=== PATIENT | male | born 1975 | race Caucasian/White ===

== ENCOUNTER 2019-08-12 14:14 | Emergency (ER) | payer SELFPAY ==
[~2019-08-12] VITALS: Ht 170.2 cm; Wt 77.1 kg
[2019-08-12 14:30] VITALS: BP 144/83
--- NOTE | 2019-08-12 14:30 | NUR ---
ED Nurse Note: Pt ambulated to ED d/t LT hand 2nd digit laceration noted with controlled bleeding x 1 hr ago. Pt is AOx4, french in speaking, VSS, on RA, afebrile. Placed on RME.
[2019-08-12] MEDS ORDERED: Tetanus/Diptheria/Pertussis IM ONE (14:45)
[2019-08-12] MEDS ORDERED: Morphine Sulfate 2mg/ml Inj(IV/IM USE ONLY) IVP ONE (15:00)
[2019-08-12] MEDS ORDERED: Bupivacaine 0.5% Inj 30 ml vial INJ ONE (15:00)
[2019-08-12] MEDS ORDERED: ceFAZolin sod 1 GM in NS 55 ML IVPB ONE (15:00)
--- NOTE | 2019-08-12 15:26 | Emergency Room Report ---
History of Present Illness General Chief Complaint: Laceration Source: Patient Present Illness HPI Patient is a 44-year-old male brought in by self after increased pain to the left index finger. Patient had recent crush injury to the finger. Had a heavy object landed on the tip of his finger. Denies any other locations of pain or injury.Patient was noted to be [id number]. Denies recent tetanus vaccine. Reports having pain to the tip of the finger. Denies any other prior medical history. Allergies: Coded Allergies: No Known Allergies (Unverified , 08/12/19) COVID-19 Screening Contact w/high risk pt: No Recent Travel to affected area: No Experienced COVID-19 symptoms?: No Patient History Past Medical History: see triage record Reviewed Nursing Documentation: PMH: Agreed; PSxH: Agreed Nursing Documentation-PMH Past Medical History: No Stated History Review of Systems All Other Systems: negative except mentioned in HPI Physical Exam Vital Signs Date Time Temp Pulse Resp B/P (MAP) Pulse Ox O2 Delivery O2 Flow Rate FiO2 08/12/19 14:27 98.2 105 18 144/83 (103) 95 Room Air Sp02 EP Interpretation: reviewed, normal General Appearance: normal inspection, well appearing, no apparent distress, alert, GCS 15 Head: atraumatic ENT: normal ENT inspection, hearing grossly normal, normal voice Neck: normal inspection, full range of motion, supple, no bony tend Respiratory: normal inspection, lungs clear, normal breath sounds, no respiratory distress, no retraction, no wheezing Cardiovascular #1: regular rate, rhythm, no edema Gastrointestinal: normal inspection, normal bowel sounds, non tender, soft, no guarding, no hernia Genitourinary: no CVA tenderness Musculoskeletal: normal inspection, back normal, other - deformity to left index finger distal phalanx with laceration and base of nail injury Neurologic: alert, motor strength/tone normal, business intelligence developer III-XII nml as tested, oriented x3, responsive, speech normal, normal inspection Psychiatric: normal inspection, judgement/insight normal, mood/affect normal Skin: laceration - complex laceration as above Medical Decision Making Diagnostic Impression: Primary Impression: Laceration Additional Impression: Open finger fracture ER Course Patient presented for hand injury. Differential diagnosis include was not limited to fracture, contusion, foreign body, vascular compromise, tendon injury among others. Because of complexity of patient's case laboratory tests and imaging studies were ordered. Patient was given IV ancef and tetanus was updated. Patient was given a local injection of 1 cc of 25% Marcaine for anesthesia and pain medications. Dr. Lux Anand was contacted for hand surgery evaluation due to open fracture and complex laceration Patient was seen by Dr. Anand. Patient's open fracture was managed by him. Patient was discharged home. Patient is to follow-up with Dr. Anand. He is to return if worse. Labs Test 08/12/19 15:13 White Blood Count 7.4 K/UL (4.8-10.8) Red Blood Count 4.94 M/UL (4.70-6.10) Hemoglobin 15.7 G/DL (14.2-18.0) Hematocrit 48.6 % (42.0-52.0) Mean Corpuscular Volume 99 FL (80-99) Mean Corpuscular Hemoglobin 31.9 PG (27.0-31.0) Mean Corpuscular Hemoglobin Concent 32.4 G/DL (32.0-36.0) Red Cell Distribution Width 12.4 % (11.6-14.8) Platelet Count 307 K/UL (150-450) Mean Platelet Volume 7.3 FL (6.5-10.1) Neutrophils (%) (Auto) 68.0 % (45.0-75.0) Lymphocytes (%) (Auto) 22.0 % (20.0-45.0) Monocytes (%) (Auto) 7.4 % (1.0-10.0) Eosinophils (%) (Auto) 1.6 % (0.0-3.0) Basophils (%) (Auto) 1.0 % (0.0-2.0) Prothrombin Time 11.2 SEC (9.30-11.50) Prothromb Time International Ratio 1.1 (0.9-1.1) Activated Partial Thromboplast Time 26 SEC (23-33) Sodium Level 141 MMOL/L (136-145) Potassium Level 4.1 MMOL/L (3.5-5.1) Chloride Level 104 MMOL/L (98-107) Carbon Dioxide Level 25 MMOL/L (21-32) Anion Gap 12 mmol/L (5-15) Blood Urea Nitrogen 16 mg/dL (7-18) Creatinine 1.0 MG/DL (0.55-1.30) Estimat Glomerular Filtration Rate > 60 mL/min (>60) Glucose Level 105 MG/DL (74-106) Calcium Level 9.1 MG/DL (8.5-10.1) Total Bilirubin 0.3 MG/DL (0.2-1.0) Aspartate Amino Transf (AST/SGOT) 34 U/L (15-37) Alanine Aminotransferase (ALT/SGPT) 54 U/L (12-78) Alkaline Phosphatase 46 U/L (46-116) Total Protein 8.2 G/DL (6.4-8.2) Albumin 4.2 G/DL (3.4-5.0) Globulin 4.0 g/dL Albumin/Globulin Ratio 1.0 (1.0-2.7) Last Vital Signs Date Time Temp Pulse Resp B/P (MAP) Pulse Ox O2 Delivery O2 Flow Rate FiO2 08/12/19 14:27 98.2 105 18 144/83 (103) 95 Room Air Status: improved Disposition: HOME, SELF-CARE Condition: Stable Scripts Hydrocodone Bit/Acetaminophen 5-325* (NORCO 5-325 TABLET*) 1 Each Tablet 1 TAB ORAL Q6H PRN for FOR PAIN, #15 TAB 0 Refills Prov: Joi Chi 08/12/19 Amoxicillin/Potassium Clav 875-125* (AUGMENTIN 875-125 TABLET*) 1 Each Tablet 1 TAB ORAL TWICE A DAY for 7 Days, #14 TAB Prov: Joi Chi 08/12/19 Referrals: NOT CHOSEN [facility]/,REFERRING (PCP) Placido Washington MD Aug 12, 2019 15:26
--- NOTE | 2019-08-12 15:43 | Diagnostic Imaging Report ---
Indication: Pain, trauma Technique: 3 views of the left index finger Comparison: none Findings: There is a severely comminuted fracture of the terminal tuft of the its distal phalanx. Fracture fragments appear avulsed several millimeters away from the terminal tuft, and there appears to be an associated significant soft tissue injury. No other fractures. No definite radiopaque foreign bodies; all of the visualized densities appear to be osseous Impression: Positive for terminal tuft fracture as described. Associated soft tissue injury
[2019-08-12 15:49] LABS: ANION GAP 12 mmol/L (5-15); BLOOD UREA NITROGEN 16 mg/dL (7-18); CALCIUM 9.1 MG/DL (8.5-10.1); CARBON DIOXIDE 25 MMOL/L (21-32); CHLORIDE 104 MMOL/L (98-107); POTASSIUM 4.1 MMOL/L (3.5-5.1); SODIUM 141 MMOL/L (136-145)
[2019-08-12 15:51] LABS: INR 1.1 (0.9-1.1)
[2019-08-12 15:53] LABS: ALANINE AMINOTRANSFERASE 54 U/L (12-78); ALBUMIN 4.2 G/DL (3.4-5.0); ALKALINE PHOSPHATASE 46 U/L (46-116); ASPARTATE AMINO TRANSFERASE 34 U/L (15-37); BILIRUBIN,TOTAL 0.3 MG/DL (0.2-1.0)
[2019-08-12 16:03] LABS: EOSINOPHILS % (AUTO) 1.6 % (0.0-3.0); HEMATOCRIT 48.6 % (42.0-52.0); HEMOGLOBIN 15.7 G/DL (14.2-18.0); MEAN CORPUSCULAR VOLUME 99 FL (80-99); MONOCYTES % (AUTO) 7.4 % (1.0-10.0); PLATELET COUNT 307 K/UL (150-450); RED BLOOD COUNT 4.94 M/UL (4.70-6.10); RED CELL DISTRIBUTION WIDTH 12.4 % (11.6-14.8); WHITE BLOOD COUNT 7.4 K/UL (4.8-10.8)
[2019-08-12] MEDS ORDERED: Bacitracin Oint UD TOPIC ONE (16:40)
[2019-08-12] MEDS ORDERED: Lidocaine 2% 20mg/ml/EPI 0.01mg/ml 20ml ONE (16:40)
--- NOTE | 2019-08-12 16:42 | NUR ---
ED Nurse Note: Dr. Anand at bedside.
[2019-08-12] MEDS ORDERED: Lidocaine 2% 20mg/ml/Epi 0.005mg/ml 20ml vial INJ SCH (16:45)
[2019-08-12] MEDS ORDERED: Bacitracin Oint UD TOPIC SCH (16:45)
[2019-08-12] MEDS ORDERED: AUGMENTIN 875-1 EAC1 ORAL (18:17)
[2019-08-12] MEDS ORDERED: NORCO 5-325 TA1 EAC1 ORAL (18:17)
[2019-08-12 18:25] VITALS: BP 138/82
--- NOTE | 2019-08-12 18:25 | NUR ---
ER DISCHARGE NOTE: Patient is cleared to be discharged per ERMD, pt is aox4, on room air, with stable vital signs. pt was given dc and prescription instructions, pt was able to verbalize understanding, pt id band and iv site removed without complications. pt is able to ambulate with steady gait. pt took all belongings.
== END 2019-08-12 18:25 | disposition home or self-care (01) ==
LOC: EMR 15:10
DX: S62.631B Displaced fracture of distal phalanx of left index finger, initial encounter for open fracture (principal); S61.211A Laceration without foreign body of left index finger without damage to nail, initial encounter; W20.8XXA Other cause of strike by thrown, projected or falling object, initial encounter; Y92.89 Other specified places as the place of occurrence of the external cause; Z23 Encounter for immunization
CPT/HCPCS: 36415; 73140; 80053; 85025; 85610; 85730; 90471; 90715; 96365; 96374; 99284; J0690; J2270; J3490; 99283